=== PATIENT | female | born 1965 | race Caucasian/White ===

== ENCOUNTER 2017-12-10 02:25 | Emergency (ER) | payer OTHER ==
[~2017-12-10] VITALS: Ht 162.6 cm; Wt 73.5 kg
== END 2017-12-10 06:21 | disposition home or self-care (01) ==
LOC: ER 02:25
DX: R00.2 Palpitations (principal)

== ENCOUNTER → 2018-07-03 | Emergency (ER) | payer OTHER ==
[~2018-07-03] VITALS: Ht 160 cm; Wt 72.6 kg
== END | disposition home or self-care (01) ==
LOC: ER 18:16
DX: G44.89 Other headache syndrome (principal); J32.8 Other chronic sinusitis

== ENCOUNTER 2022-09-14 20:38 | Emergency (ER) | payer OTHER ==
[~2022-09-14] VITALS: Ht 162.6 cm; Wt 68.9 kg
== END 2022-09-14 21:50 | disposition home or self-care (01) ==
LOC: ER 20:38
DX: M79.642 Pain in left hand (principal)